=== PATIENT | female | born 1985 | race Caucasian/White ===

== ENCOUNTER 2020-02-13 13:50 | Emergency (ER) | payer SELFPAY ==
[~2020-02-13] VITALS: Ht 162.6 cm; Wt 126.4 kg
[2020-02-13 13:54] VITALS: BP 206/136
--- NOTE | 2020-02-13 14:01 | ED EENT ---
History of Present Illness General Chief Complaint: Dental Problems/Pain Stated Complaint: DENTAL PAIN Source: patient Exam Limitations: no limitations History of Present Illness Date Seen by Provider: Feb 13, 2020 Time Seen by Provider: 14:01 Initial Comments 34-year-old female presents with dental pain/dental abscess. Patient reports that 2 weeks ago she was seen at a walk-in clinic started on clindamycin and given some naproxen. She has a wisdom tooth that is coming in crooked and needs to be removed. She reports that about 5 days of pain improved so she quit taking the clindamycin. She reports that she had a dental appointment but had to miss that because of work and is been rescheduled for next week. She denies any fevers, chills, nausea or vomiting. She reports she started retaking the clindamycin with one dose last night. Patient is here because of the pain. Allergies and Home Medications Allergies Coded Allergies: Penicillins (Verified Allergy, Unknown, rash, 02/13/20) Patient Home Medication List Home Medication List Reviewed: Yes Review of Systems Review of Systems Constitutional: No chills, No fever, No weakness Eyes: No Symptoms Reported Ears: No Symptoms Reported Nose: no symptoms reported Mouth: see HPI Throat: no symptoms reported Respiratory: no symptoms reported Cardiovascular: no symptoms reported Gastrointestinal: no symptoms reported Past Mxrcnwb-Rjisqf-Uebzst Hx Past Med/Social Hx: Reviewed Nursing Past Med/Soc Hx Physical Exam Vital Signs Vital Signs - First Documented 02/13/20 13:54 Temp 36.4 Pulse 113 Resp 16 B/P (MAP) 206/136 (159) Pulse Ox 99 O2 Delivery Room Air Height, Weight, BMI Height: '" Weight: lbs. oz. kg; BMI Method: General Appearance: WD/WN, no apparent distress Mouth/Throat: other (no abscess noted, there is tenderness to the wisdom tooth on the lower left side) Neck: non-tender Cardiovascular: normal peripheral pulses, regular rate, rhythm Respiratory: lungs clear, normal breath sounds Gastrointestinal: non tender, soft Neurologic/Psychiatric: alert, normal mood/affect, oriented x 3 Skin: normal color, warm/dry Progress/Results/Core Measures Results/Orders Vital Signs/I&O 02/13/20 13:54 Temp 36.4 Pulse 113 Resp 16 B/P (MAP) 206/136 (159) Pulse Ox 99 O2 Delivery Room Air Departure Impression Primary Impression: Pain, dental Disposition: HOME, SELF-CARE Condition: Stable Departure-Patient Inst. Patient Instructions: Dental Pain Add. Discharge Instructions: Please continue to take here clindamycin Call Saturday for an appointment with the dentist as soon as possible All discharge instructions reviewed with patient and/or family. Voiced understanding. Scripts Ondansetron (Ondansetron Odt) 4 Mg Tab.rapdis 4 MG PO Q6H PRN for NAUSEA/VOMITING, #20 TAB 0 Refills Prov: ANA LILIA FINNEY DO 02/13/20 ANA LILIA FINNEY DO Feb 13, 2020 14:01
[2020-02-13] MEDS ORDERED: ONDA4TAB11 PO (14:16)
[2020-02-13] MEDS ORDERED: MORP15TA PO (14:16)
== END 2020-02-13 14:21 | disposition home or self-care (01) ==
LOC: ER FS 13:52
DX: K08.89 Other specified disorders of teeth and supporting structures (principal); Z88.0 Allergy status to penicillin
CPT/HCPCS: 99282

== ENCOUNTER 2020-08-17 20:17 | Emergency (ER) | payer SELFPAY ==
[~2020-08-17 20:17] MED LIST: MORP15TA PO; ONDA4TAB11 PO
--- NOTE | 2020-08-17 20:49 | ED General ---
General Stated Complaint: HIGH BLOOD PRESSURE 225/168 Source of Information: Patient, Other (FEMALE WITH PT) History of Present Illness Date Seen by Provider: Aug 17, 2020 Time Seen by Provider: 20:39 Initial Comments PT ARRIVES VIA POV C/O ELEVATED BLOOD PRESSURE OF 225/168 AT HOME JUST PRIOR TO ARRIVAL PT WENT TO [facility] LAST PM FOR DENTAL PAIN, AND BP WAS 227/155 AT THAT TIME--NO TESTS OR TREATMENT GIVEN FOR BLOOD PRESSURE PT HAS NOT HAD PRIOR DX OF HTN OR BEEN ON ANY BLOOD PRESSURE MEDICATIONS PT DENIES HEADACHE DENIES CHEST PAIN DENIES SHORTNESS OF BREATH DENIES DIZZINESS DENIES VISION CHANGES PT STATES "THIS WAS NOT MY IDEA--THIS WAS A MISTAKE" PT ADAMANTLY REFUSES AN IV OR LAB DRAW. REFUSES ANY TESTS--STATES THAT HE/SHE JUST WANTS TO LEAVE--STATES WANTS TO GO BACK TO [facility], BECAUSE THEY DIDN'T DO ANY TESTS. PT THEN SIGNED OUT AMA. UNABLE TO OBTAIN ANY OTHER INFORMATION OR HISTORY. PT ADVISED OF RISKS PT APPEARS TO BE A MALE, BUT FEMALE WITH PT REFERS TO PT "SHE" BUT CALLS PT "NATALIE" PCP: [facility] Allergies and Home Medications Allergies Coded Allergies: Penicillins (Verified Allergy, Unknown, rash, 02/13/20) Home Medications Morphine Sulfate 15 Mg Tablet, 15 MG PO Q8H PRN for PAIN-SEVERE (8-10) Prescribed by: ANA LILIA FINNEY on 02/13/20 1416 Ondansetron 4 Mg Tab.rapdis, 4 MG PO Q6H PRN for NAUSEA/VOMITING Prescribed by: ANA LILIA FINNEY on 02/13/20 1416 Patient Home Medication List Home Medication List Reviewed: Yes Review of Systems Review of Systems Constitutional: see HPI Past Lhitizf-Phrotg-Pqhfft Hx Patient Social History 2nd Hand Smoke Exposure: No Recent Hopitalizations: No Seasonal Allergies Seasonal Allergies: No Past Medical History Surgeries: No Respiratory: No Cardiac: No Neurological: No Genitourinary: No Gastrointestinal: No Musculoskeletal: No Endocrine: Yes Hypothyroidsim HEENT: No Cancer: No Psychosocial: No Integumentary: No Physical Exam Vital Signs Capillary Refill : Height, Weight, BMI Height: '" Weight: lbs. oz. kg; 47.00 BMI Method: General Appearance: No Apparent Distress, Anxious Progress/Results/Core Measures Suspected Sepsis SIRS Temperature: Pulse: Respiratory Rate: Blood Pressure / Mean: Results/Orders Vital Signs/I&O Capillary Refill : Departure Impression Primary Impression: Left against medical advice Disposition: 07 AGAINST MEDICAL ADVICE Condition: Against Medical Advice Departure-Patient Inst. Referrals: NO,LOCAL PHYSICIAN (PCP/Family) Primary Care Physician MARGO SENIOR DO Aug 17, 2020 20:49
== END 2020-08-17 20:50 | disposition left against medical advice (07) ==
LOC: EDUNIT# 20:17 → ER 20:19
DX: I10 Essential (primary) hypertension (principal)